=== PATIENT | female | born 1945 | race Caucasian/White ===

== ENCOUNTER 2018-12-17 03:31 | Emergency (ER) | payer MEDICARE, OTHER ==
[2018-12-17] MEDS ORDERED: Metoprolol Tartrate 5 MG/5 ML SDV IVPUSH ONE (03:55)
--- NOTE | 2018-12-17 03:55 | EDM.PDOC ---
ED HPI GENERAL MEDICAL PROBLEM - General Chief Complaint: Cardiovascular Problem Stated Complaint: RACING HEART/LEFT UPPER ABDOMINAL PAIN Time Seen by Provider: 12/17/18 03:53 Source of Information: Reports: Patient, Family (spouse) History Limitations: Reports: No Limitations - History of Present Illness INITIAL COMMENTS - FREE TEXT/NARRATIVE: 73-year-old female who is a very vague historian presents to the ED because of palpitations in her chest. She states she perhaps feels very minimally short of breath. No dizziness or lightheadedness. She states she gets frequent bouts of similar attacks but they usually don't last very long. They've been coming more frequently and lasting longer. This was present even before she went to bed and she slept off and on during the night. She decided to come to the hospital because of rapid irregular heartbeat in the 130s 140s at home. The ECG shows sinus rhythm at a sinus tachycardia at 107. With very frequent premature atrial contractions from multiple foci. He denies any central chest pain. She states she has no known heart disease had a stress test in 2018 at which she time she passed. 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 Again she has no complaints of chest pain. She has no known thyroid disease. No recent changes to any of her medications. Blood pressure on arrival was quite high at 185/118. She does appear to be anxious. Onset: Unknown/Unsure (She states she gets these almost daily but never usually last this long.) Duration: Week(s):, Getting Worse, Intermittent, Waxing/Waning Location: Reports: Chest (Palpitations fast irregular beating of her heart.) Quality: Reports: Other Severity: Moderate (Denies any chest pain.) Improves with: Reports: None Worsens with: Reports: None Context: Reports: Other (Occurs spontaneously for no good reason.). Denies: Activity, Exercise, Lifting, Sick Contact, Trauma Associated Symptoms: Reports: Malaise. 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 (see below) (None.) Epigastric Pain Score (Numeric/FACES): 7 - Related Data Allergies Allergy/AdvReac Type Severity Reaction Status Date / Time ibuprofen [From Motrin] Allergy Swelling Verified 12/17/18 03:55 Home Meds: Home Meds Aspirin 81 mg PO DAILY 12/17/18 [History] Atenolol [Tenormin] 25 mg PO DAILY #30 tablet 12/17/18 [Rx] Calcium Carbonate [Tums] 500 mg PO BEDTIME 12/17/18 [History] Calcium Phosphate Trib/Vit D3 [Citracal + D3 Gummies] 1 tab PO DAILY 12/17/18 [ History] Multivits,Ca,Minerals/Iron/FA [Thera-M] 1 each PO DAILY 12/17/18 [History] Pantoprazole Sodium [Protonix] 40 mg PO ACBREAKFAST 12/17/18 [History] Propylene Glycol/PEG 400/Pf [Systane 0.3-0.4% Eye Drops] 1 each OP BID 12/17/18 [History] Rosuvastatin [Crestor] 10 mg PO DAILY 12/17/18 [History] Past Medical History Cardiovascular History: Reports: Arrhythmia, High Cholesterol Gastrointestinal History: Reports: GERD Endocrine/Metabolic History: Reports: Osteopenia, Osteoporosis, Vitamin D Deficiency Social & Family History - Living Situation & Occupation Living situation: Reports: Occupation: Retired ED ROS GENERAL - Review of Systems Review Of Systems: See Below Constitutional: Reports: Fatigue. Denies: Fever, Chills, Malaise, Weakness, Decreased Appetite, Weight Loss HEENT: Reports: Glasses Respiratory: Denies: Shortness of Breath, Wheezing, Pleuritic Chest Pain, Cough , Sputum Cardiovascular: Reports: Palpitations. Denies: Chest Pain, Blood Pressure Problem, Claudication, Dyspnea on Exertion, Edema, Lightheadedness, Orthopnea Endocrine: Reports: Fatigue GI/Abdominal: Reports: Constipation : Reports: Frequency, Incontinence (Mostly stress-induced.) Musculoskeletal: Reports: Joint Pain Skin: Reports: No Symptoms (A sepsis neck and low back at times.) Neurological: Reports: No Symptoms. Denies: Dizziness Psychiatric: Reports: No Symptoms Hematologic/Lymphatic: Reports: No Symptoms Immunologic: Reports: No Symptoms ED EXAM, GENERAL - Physical Exam Exam: See Below Exam Limited By: No Limitations General Appearance: Alert, WD/WN, Anxious, Moderate Distress, Other (Vital signs show she is afebrile with temperature 36.6. Pulse is reported as 90 but monitor shows it up 230 at times. Respiratory to 17 BP elevated 190/118. Pulse ox 96% on room air) Eye Exam: Bilateral Eye: Normal Inspection Head: Atraumatic, Normocephalic Neck: Normal Inspection, Supple, Non-Tender, Full Range of Motion. No: Carotid Bruit, Lymphadenopathy (L), Lymphadenopathy (R) Respiratory/Chest: No Respiratory Distress, Lungs Clear, Normal Breath Sounds, No Accessory Muscle Use, Other (Surgical scars right upper anterior chest. She reports an open reduction internal fixation of a fractured collarbone many years ago.) Cardiovascular: No Gallop, No Murmur, No Rub, Tachycardia (Rate is up to 130/m at times.), Irregularly Irregular Peripheral Pulses: 2+: Posterior Tibial (L), Posterior Tibial (R), Dorsalis Pedis (L), Dorsalis Pedis (R) GI/Abdominal: Normal Bowel Sounds, Soft, Non-Tender, No Organomegaly, No Abnormal Bruit, No Mass, Pelvis Stable Extremities: Pedal Edema (Patient comments that they usually swell a bit during the day and go down overnight.) Neurological: Alert (1-2+ pitting edema to mid tib-fib bilaterally.), Oriented, CN II-XII Intact, Normal Cognition, Normal Gait Psychiatric: Anxious Skin Exam: Warm, Dry, Intact, Normal Color, No Rash EKG INTERPRETATION EKG Date: 12/17/18 Time: 03:37 Rhythm: Other (Sinus tachycardia with very frequent premature atrial contractions from multiple areas) Rate (Beats/Min): 107 [place]: LAD-Left [place] Deviation P-Wave: Variable (Variable morphology due to PACs.) QRS: Other (There are Q waves in leads II, III, and F aVF but with an old inferior wall myocardial infarction. There is decreased voltage in limb and precordial leads. There are near Q waves in V3 and V4 with poor R-wave progression. Cannot rule out anteroseptal ischemia.) QT: Prolonged (Left axis deviation of -66. Mildly prolonged.) EKG Interpretation Comments: Abnormal ECG Course - Vital Signs Last Recorded V/S: Last Vital Signs Temp 36.6 C 12/17/18 03:53 Pulse 83 12/17/18 04:03 Resp 17 12/17/18 03:53 BP 148/96 H 12/17/18 04:03 Pulse Ox 96 12/17/18 03:53 - Orders/Labs/Meds Orders: Active Orders 24 hr Category Date Time Status Chest 1V Frontal [CR] Stat Exams 12/17/18 03:53 Taken PRO B-TYPE NATRIUR PEPT,BNPPRO [CHEM] Stat Lab 12/17/18 03:50 Received URINALYSIS W/MICROSCOPIC [UA W/MICROSCOPIC] [URIN] Stat Lab 12/17/18 03:54 Ordered Sodium Chloride 0.9% [Normal Saline] 1,000 ml Med 12/17/18 04:00 Active IV ASDIRECTED Medication Orders Sodium Chloride (Normal Saline) 1,000 mls @ 100 mls/hr IV ASDIRECTED ALEXANDRA Last Admin: 12/17/18 04:05 Dose: 100 mls/hr Labs: Laboratory Tests 12/17/18 12/17/18 12/17/18 Range/Units 03:50 03:50 03:50 WBC 7.66 (3.98-10.04) K/mm3 RBC 4.93 (3.98-5.22) M/mm3 Hgb 14.7 (11.2-15.7) gm/dl Hct 44.3 (34.1-44.9) % MCV 89.9 (79.4-94.8) fl MCH 29.8 (25.6-32.2) pg MCHC 33.2 (32.2-35.5) g/dl RDW Std Deviation 46.0 (36.4-46.3) fL Plt Count 250 (182-369) K/mm3 MPV 10.9 (9.4-12.3) fl Neut % (Auto) 59.9 (34.0-71.1) % Lymph % (Auto) 22.1 (19.3-51.7) % [place] % (Auto) 10.8 (4.7-12.5) % Eos % (Auto) 6.5 H (0.7-5.8) Baso % (Auto) 0.7 (0.1-1.2) % Neut # (Auto) 4.59 (1.56-6.13) K/mm3 Lymph # (Auto) 1.69 (1.18-3.74) K/mm3 [place] # (Auto) 0.83 H (0.24-0.36) K/mm3 Eos # (Auto) 0.50 H (0.04-0.36) K/mm3 Baso # (Auto) 0.05 (0.01-0.08) K/mm3 PT 10.8 (9.7-12.0) SECONDS INR 0.99 APTT 25 (22-31) SECONDS Sodium 139 (136-145) mEq/L Potassium 3.9 (3.5-5.1) mEq/L Chloride 104 (98-107) mEq/L Carbon Dioxide 27 (21-32) mEq/L Anion Gap 11.9 (5-15) BUN 19 H (7-18) mg/dL Creatinine 0.7 (0.55-1.02) mg/dL Est Cr Clr Drug Dosing TNP Estimated GFR (MDRD) > 60 (>60) mL/min BUN/Creatinine Ratio 27.1 H (14-18) Glucose 99 (83-115) mg/dL Calcium 9.2 (8.5-10.1) mg/dL Magnesium 2.0 (1.8-2.4) mg/dl Total Bilirubin 0.5 (0.2-1.0) mg/dL AST 17 (15-37) U/L ALT 22 (14-59) U/L Alkaline Phosphatase 75 (46-116) U/L Troponin I < 0.017 (0.00-0.056) ng/mL C-Reactive Protein < 0.2 (<1.0) mg/dL Total Protein 7.8 (6.4-8.2) g/dl Albumin 3.9 (3.4-5.0) g/dl Globulin 3.9 gm/dL Albumin/Globulin Ratio 1.0 (1-2) TSH 3rd Generation 3.966 H (0.358-3.74) uIU/mL Meds: Medications Generic Name Dose Route Start Last Admin Trade Name Freq PRN Reason Stop Dose Admin Sodium Chloride 1,000 mls @ 100 mls/hr 12/17/18 04:00 12/17/18 04:05 Normal Saline IV 100 mls/hr ASDIRECTED ALEXANDRA Administration Discontinued Medications Generic Name Dose Route Start Last Admin Trade Name Freq PRN Reason Stop Dose Admin Metoprolol Tartrate 5 mg 12/17/18 03:55 10/02/19 04:03 Lopressor IVPUSH 12/17/18 03:56 5 mg ONETIME ONE Administration - Radiology Interpretation Free Text/Narrative:: 33-year-old female presents to the ED with palpitations. She states that these occur frequently for her and almost on a daily basis. They're getting more frequent and today and yesterday she's had a lot of palpitations that just won' t go away. Usually settle down within a short period of time. She is relatively asymptomatic in terms that she's not short of breath she denies any central chest pain she is not dizzy or lightheaded. She appears to be quite anxious upon arrival. She is a rather poor historian. Her initial blood pressure was markedly elevated at 180 07/16/17. Weight was up to 1 37/m to frequent premature atrial contractions on top of a sinus tachycardia of 10 7/m. There are Q waves in the inferior wall suggesting an old inferior wall myocardial infarction. I did get a hold of the ECG stress test and lexicon study done in June 2017 and they were reported as normal. Plan she will receive Lopressor 5 mg IV to suppress PACs and improve her blood pressure. Routine labs including a TSH to be done. Portable chest x-ray to be done. - Re-Assessments/Exams Free Text/Narrative Re-Assessment/Exam: 12/17/18 04:22 Portable chest x-ray reveals a screw in her right clavicle. He did indicate that she had previous fracture and open reduction internal fixation. Cardiac silhouette is essentially normal. Probable mild tortuous thoracic aorta. No significant vascular congestion. Heart rate is now 65/m BP is dropped to 142/ 96.02 Sats remained 97% on room air. 12/17/18 04:38 patient remains in sinus rhythm at 66/m. BP is down to 137/81. Sats are 96% on room air. Patient is watching TV and seems very unconcerned. 12/17/18 04:52 Labs reveal a normal white count at 7.66 auto differential shows 60% neutrophils. Hemoglobin is 14.7 with hematocrit of 44.3. Platelet count normal 250,000. PT is 10.8 with an INR of 0.99. PTT is 25. Sodium 139 with potassium of 3.9. Chloride 104 the bicarbonate 27. Anion gap is 11.9. BUN is 19 with a creatinine of 0.7 GFR remains greater than 60. Glucose is 99. Calcium 9.2. Magnesium normal at 2.0. Liver function normal. Troponin I is less than 0.017. C-reactive protein less than 0.2. Total protein 7.8 with no been fraction of 3.9. TSH is 3.966 slightly elevated. Normal is up to 3.749 lab. This suggests that she has subclinical hypothyroidism. Needs a recheck on her thyroid function in 6 months. Since the patient is having a lot of palpitations and going to place her on atenolol 25 mg once daily to help control them plus control her blood pressure. I will have her follow up in the clinic in 2 weeks time Departure - Departure Time of Disposition: 04:53 Disposition: Home, Self-Care 01 Reason for Transfer *Q: Other Condition: Fair Clinical Impression: Rapid palpitations, Finding of multiple premature atrial contractions by electrocardiography, Mild hypertension, Subclinical hypothyroidism, Palpitations Prescriptions: Atenolol [Tenormin] 25 mg PO DAILY #30 tablet Instructions: Premature Atrial Contraction Referrals: Philip Nicholson MD [Primary Care Provider] - Forms: ED Department Discharge Additional Instructions: Evaluation the emergent today in regards to palpitations with an underlying rapid irregular heartbeat. Premature atrial contractions coming from multiple foci were present causing your hard to skip and race. Indicated this is been occurring quite frequently as of late but usually doesn't last as long. Her blood pressure also remained high during her stay in the ED. It appears that you have mild hypertension with the top number ranging between 140 and 165 and the bottom number between 85 and 95. Suggest use of atenolol 25 mg tablet once daily in the morning to help control blood pressure and also control palpitations. Inverted medication were used intravenously in the emergency room to bring your palpitations under control and it worked extremely well. Heart rate went down to the 64 range where prolongs and palpitations were completely eradicated by Lopressor 5 mg IV. Just starting atenolol 25 mg once daily this morning after you pick it up from the pharmacy. Suggest follow-up with her personal care physician and 2-3 weeks' time. The only other abnormality identified on lab work was difficult subclinical hypothyroidism. Lab suggests either thyroid gland is working a bit harder than normal to send off thyroid hormone to your rest of your body. Density is minimally abnormal at this time he does not deserve treatment but should be tested every 6 months to a year to make sure you don't develop full-blown hypothyroidism or underactive thyroid gland. It would then require any supplemental thyroid hormone once daily in a well-formed. - My Orders Last 24 Hours: My Active Orders 12/17/18 03:50 PRO B-TYPE NATRIUR PEPT,BNPPRO [CHEM] Stat 12/17/18 03:53 Chest 1V Frontal [CR] Stat 12/17/18 03:54 URINALYSIS W/MICROSCOPIC [UA W/MICROSCOPIC] [URIN] Stat 12/17/18 04:00 Sodium Chloride 0.9% [Normal Saline] 1,000 ml IV ASDIRECTED - Assessment/Plan Last 24 Hours: My Active Orders 12/17/18 03:50 PRO B-TYPE NATRIUR PEPT,BNPPRO [CHEM] Stat 12/17/18 03:53 Chest 1V Frontal [CR] Stat 12/17/18 03:54 URINALYSIS W/MICROSCOPIC [UA W/MICROSCOPIC] [URIN] Stat 12/17/18 04:00 Sodium Chloride 0.9% [Normal Saline] 1,000 ml IV ASDIRECTED
[2018-12-17] MEDS ORDERED: Sodium Chloride 0.9% 1,000 ML IV SCH (04:00)
--- NOTE | 2018-12-17 06:53 | CR ---
Chest: Frontal view of the chest was obtained. Comparison: Prior chest x-ray is not available. Previous surgery within the right clavicle is noted. Tortuous thoracic aorta is seen. Heart size at the upper limits of normal. Lungs are clear with no acute parenchymal change. Azygous lobe is incidentally noted. Impression: 1. Findings as noted above. Nothing acute is seen on frontal chest x-ray. Diagnostic code #2
== END 2018-12-17 05:07 | disposition home or self-care (01) ==
LOC: JD.ED 03:31
DX: I49.1 Atrial premature depolarization (principal); I10 Essential (primary) hypertension; E03.9 Hypothyroidism, unspecified; E78.00 Pure hypercholesterolemia, unspecified; K21.9 Gastro-esophageal reflux disease without esophagitis; Z79.899 Other long term (current) drug therapy; Z79.82 Long term (current) use of aspirin; Z88.6 Allergy status to analgesic agent
CPT/HCPCS: 36415; 71045; 80053; 83735; 83880; 84443; 84484; 85025; 85610; 85730; 86140; 96361; 96374; 99285; J3490; J7040; 93010

== ENCOUNTER 2020-07-20 09:19 | Emergency (ER) | payer MEDICARE, OTHER ==
[2020-07-20] MEDS ORDERED: Sodium Chloride 0.9% 10 ML Syringe FLUSH PRN ×2 (09:46→09:55)
--- NOTE | 2020-07-20 09:53 | EDM.PDOC ---
ED HPI GENERAL MEDICAL PROBLEM - General Chief Complaint: Abdominal Pain Stated Complaint: ABDOMINAL PAIN Time Seen by Provider: 07/20/20 09:30 Source of Information: Reports: Patient History Limitations: Reports: No Limitations - History of Present Illness INITIAL COMMENTS - FREE TEXT/NARRATIVE: The patient presents with lower abdominal pain. She said this started Saturday night. She had nausea, vomiting, diarrhea, and abdominal pain. The nausea, vomiting and diarrhea are better. She has slightly formed stools now but there are pale. She has no fever, chills, cough, congestion, runny nose, chest pain or shortness of breath. She has no dysuria. Onset: Gradual Duration: Day(s): (5) Location: Reports: Abdomen Quality: Reports: Sharp Severity: Moderate Improves with: Reports: None Worsens with: Reports: None Associated Symptoms: Reports: Nausea/Vomiting. Denies: Chest Pain, Cough, Fever/Chills, Headaches, Shortness of Breath Lower Abdomen Pain Score (Numeric/FACES): 5 - Related Data Allergies Allergy/AdvReac Type Severity Reaction Status Date / Time ibuprofen [From Motrin] Allergy Swelling Verified 12/17/18 03:55 Home Meds: Home Meds Aspirin 81 mg PO DAILY 12/17/18 [History] Calcium Carbonate [Tums] 500 mg PO BEDTIME 12/17/18 [History] Multivit,Calc,Mins/Iron/Folic [Thera-M] 1 each PO DAILY 12/17/18 [History] Pantoprazole Sodium [Protonix] 40 mg PO ACBREAKFAST 12/17/18 [History] Propylene Glycol/PEG 400/Pf [Systane 0.3-0.4% Eye Drops] 1 each OP BID 12/17/18 [History] Rosuvastatin [Crestor] 10 mg PO DAILY 12/17/18 [History] atenoloL [Tenormin] 25 mg PO DAILY #30 tablet 12/17/18 [Rx] Aloe Vera/Sodium Chloride [[place] Saline Nasal Gel] 1 spray [place] ASDIRECTED PRN 07/20/20 [History] Amoxicillin/Clavulanate K [Augmentin 875-125 MG] 1 tab PO BID #20 tablet 07/20/20 [Rx] Cholecalciferol (Vitamin D3) [Vitamin D3] 1,000 unit PO DAILY 07/20/20 [History] Erythromycin Base [Erythromycin] 0 mg EYEBOTH ASDIRECTED 07/20/20 [History] L. Acidophilus/L. Rhamnosus [[place] Women 15 B Cell Cap] 1 tab PO DAILY 07/20/20 [History] Past Medical History Cardiovascular History: Reports: Arrhythmia, High Cholesterol Gastrointestinal History: Reports: Diverticulosis, GERD Genitourinary History: Reports: Urinary Incontinence [employer] History: Reports: Musculoskeletal History: Reports: Other (See Below) Other Musculoskeletal History: clavicle fracture Endocrine/Metabolic History: Reports: Obesity/BMI 30+, Osteopenia, Osteoporosis, Vitamin D Deficiency - Infectious Disease History Infectious Disease History: Reports: C-Difficile, Measles Social & Family History - Tobacco Use Tobacco Use Status *Q: Never Tobacco User Second Hand Smoke Exposure: No - Caffeine Use Caffeine Use: Reports: Soda, Tea - Recreational Drug Use Recreational Drug Use: No - Living Situation & Occupation Living situation: Reports: Occupation: Retired ED ROS GENERAL - Review of Systems Review Of Systems: See Below Constitutional: Reports: No Symptoms HEENT: Reports: No Symptoms Respiratory: Reports: No Symptoms Cardiovascular: Reports: No Symptoms Endocrine: Reports: No Symptoms GI/Abdominal: Reports: Abdominal Pain, Diarrhea, Nausea, Vomiting : Reports: No Symptoms Musculoskeletal: Reports: No Symptoms ED EXAM, GI/ABD - Physical Exam Exam: See Below Exam Limited By: No Limitations General Appearance: Alert, No Apparent Distress Ears: Normal External Exam Nose: Normal Inspection Head: Atraumatic, Normocephalic Neck: Normal Inspection Respiratory/Chest: No Respiratory Distress, Lungs Clear, Normal Breath Sounds Cardiovascular: Regular Rate, Rhythm, No Edema, No Murmur GI/Abdominal Exam: Soft, No Organomegaly, No Mass, Tender (Mild to moderate lower abdominal pain with palpation) Extremities: Normal Inspection Neurological: Alert, Oriented, No Motor/Sensory Deficits Course - Vital Signs Last Recorded V/S: Last Vital Signs Temp 97.6 F 07/20/20 09:29 Pulse 88 07/20/20 09:29 Resp 12 07/20/20 09:29 BP 175/93 H 07/20/20 09:29 Pulse Ox 100 07/20/20 09:29 - Orders/Labs/Meds Orders: Active Orders 24 hr Category Date Time Status Peripheral IV Care [RC] . DIRECTED Care 07/20/20 09:47 Active Sodium Chloride 0.9% [Normal Saline] 1,000 ml Med 07/20/20 10:00 Active IV ASDIRECTED Sodium Chloride 0.9% [Saline Flush] Med 07/20/20 09:46 Active 10 ml FLUSH ASDIRECTED PRN Sodium Chloride 0.9% [Saline Flush] Med 07/20/20 09:55 Active 10 ml FLUSH ONETIME PRN ED Antiemetic Medication Reflex [OM.PC] Stat Ot 07/20/20 09:47 Ordered Peripheral IV Insertion Adult [OM.PC] Stat Ot 07/20/20 09:46 Ordered Medication Orders Sodium Chloride (Normal Saline) 1,000 mls @ 150 mls/hr IV ASDIRECTED ALEXANDRA Last Admin: 07/20/20 10:05 Dose: 150 mls/hr Documented by: KAY Sodium Chloride (Sodium Chloride 0.9% 10 Ml Syringe) 10 ml FLUSH ASDIRECTED PRN PRN Reason: Keep Vein Open Last Admin: 07/20/20 10:06 Dose: 10 ml Documented by: KAY Sodium Chloride (Sodium Chloride 0.9% 10 Ml Syringe) 10 ml FLUSH ONETIME PRN PRN Reason: IV FLUSH Last Admin: 07/20/20 10:59 Dose: 10 ml Documented by: NIEVES Labs: Laboratory Tests 07/20/20 07/20/20 07/20/20 Range/Units 09:46 10:05 11:18 WBC 12.47 H (3.98-10.04) K/mm3 RBC 4.87 (3.98-5.22) M/mm3 Hgb 14.1 (11.2-15.7) gm/dl Hct 44.1 (34.1-44.9) % MCV 90.6 (79.4-94.8) fl MCH 29.0 (25.6-32.2) pg MCHC 32.0 L (32.2-35.5) g/dl RDW Std Deviation 46.9 H (36.4-46.3) fL Plt Count 264 (182-369) K/mm3 MPV 10.2 (9.4-12.3) fl Neut % (Auto) 79.2 H (34.0-71.1) % Lymph % (Auto) 8.2 L (19.3-51.7) % [place] % (Auto) 10.1 (4.7-12.5) % Eos % (Auto) 2.1 (0.7-5.8) Baso % (Auto) 0.2 (0.1-1.2) % Neut # (Auto) 9.88 H (1.56-6.13) K/mm3 Lymph # (Auto) 1.02 L (1.18-3.74) K/mm3 [place] # (Auto) 1.26 H (0.24-0.36) K/mm3 Eos # (Auto) 0.26 (0.04-0.36) K/mm3 Baso # (Auto) 0.02 (0.01-0.08) K/mm3 Sodium 141 (136-145) mEq/L Potassium 4.0 (3.5-5.1) mEq/L Chloride 105 (98-107) mEq/L Carbon Dioxide 24 (21-32) mEq/L Anion Gap 16.0 H (5-15) BUN 28 H (7-18) mg/dL Creatinine 0.8 (0.55-1.02) mg/dL Est Cr Clr Drug Dosing 59.41 mL/min Estimated GFR (MDRD) > 60 (>60) mL/min BUN/Creatinine Ratio 35.0 H (14-18) Glucose 95 (83-115) mg/dL Calcium 8.3 L (8.5-10.1) mg/dL Total Bilirubin 0.9 (0.2-1.0) mg/dL AST 21 (15-37) U/L ALT 32 (14-59) U/L Alkaline Phosphatase 76 (46-116) U/L Total Protein 7.4 (6.4-8.2) g/dl Albumin 3.4 (3.4-5.0) g/dl Globulin 4.0 gm/dL Albumin/Globulin Ratio 0.9 L (1-2) Lipase 133 (73-393) U/L Urine Color Yellow (Yellow) Urine Appearance Clear (Clear) Urine pH 5.5 (5.0-8.0) Ur Specific [place] 1.020 (1.005-1.030) Urine Protein Trace H (Negative) Urine Glucose (UA) Negative (Negative) Urine Ketones 1+ H (Negative) Urine Occult Blood Trace-intact H (Negative) Urine Nitrite Negative (Negative) Urine Bilirubin Negative (Negative) Urine Urobilinogen 0.2 (0.2-1.0) Ur Leukocyte Esterase 1+ H (Negative) Urine RBC 5-10 H (0-5) /hpf Urine WBC 10-20 H (0-5) /hpf Ur Squamous Epith Cells 0-5 (0-5) /hpf Urine Bacteria Many H (FEW) /hpf Urine Mucus Not seen (FEW) /hpf Meds: Medications Generic Name Dose Route Start Last Admin Trade Name Freq PRN Reason Stop Dose Admin Sodium Chloride 1,000 mls @ 150 mls/hr 07/20/20 10:00 07/20/20 10:05 Normal Saline IV 150 mls/hr ASDIRECTED ALEXANDRA Administration Sodium Chloride 10 ml 07/20/20 09:46 07/20/20 10:06 Sodium Chloride 0.9% 10 Ml Syringe FLUSH 10 ml ASDIRECTED PRN Administration Keep Vein Open Sodium Chloride 10 ml 07/20/20 09:55 07/20/20 10:59 Sodium Chloride 0.9% 10 Ml Syringe FLUSH 10 ml ONETIME PRN Administration IV FLUSH Discontinued Medications Generic Name Dose Route Start Last Admin Trade Name Kody PRN Reason Stop Dose Admin Diatrizoate Meglum/Diatrizoate Sod 120 ml 07/20/20 09:55 07/20/20 10:58 Diatrizoate Meglumine/Diatrizoate Sodium 37% 120 Ml Bottle PO 07/20/20 09:56 30 ml ONETIME ONE Administration Iopamidol 50 ml 07/20/20 09:55 07/20/20 10:58 Iopamidol 612 Mg/Ml 50 Ml Sdv IVPUSH 07/20/20 09:56 50 ml ONETIME ONE Administration Iopamidol 100 ml 07/20/20 09:55 07/20/20 10:58 Iopamidol 612 Mg/Ml 100 Ml Bottle IVPUSH 07/20/20 09:56 100 ml ONETIME ONE Administration - Re-Assessments/Exams Free Text/Narrative Re-Assessment/Exam: 07/20/20 09:54 I ordered an IV NS at 150ml/hr, labs, UA and a CT of the abdomen and pelvis with IV and oral contrast. 07/20/20 11:50 Her WBC was elevated at 12.47. Her anion gap is elevated at 16. Her lipase is normal. Her UA shows a UTI. Her CT shows inflammatory change within the pelvis with numerous sigmoid diverticuli. Findings are compatible with diverticulitis. Diffuse bowel wall thickening within the right colon and part way into the transverse colon suspicious for colitis. Uncertain if this is acute or chronic. I will get her on augmentin. I have ordered something for pain before she goes. Departure - Departure Time of Disposition: 12:00 Disposition: Home, Self-Care 01 Condition: Good Clinical Impression: Diverticulitis UTI (urinary tract infection) Qualifiers: Urinary tract infection type: acute cystitis Hematuria presence: without hematuria Qualified Code(s): N30.00 - Acute cystitis without hematuria - Discharge Information Prescriptions: Amoxicillin/Clavulanate K [Augmentin 875-125 MG] 1 tab PO BID #20 tablet Referrals: Philip Nicholson MD [Primary Care Provider] - 1 Week Forms: ED Department Discharge Additional Instructions: Drink plenty of fluids. Take the augmentin 2 times per day for 10 days. Take tylenol or motrin as needed for pain. Follow up with Dr Nicholson within a week. Please return if you are worse. Sepsis Event Note (ED) - Evaluation Sepsis Screening Result: No Definite Risk - Focused Exam Vital Signs: Vital Signs Temp Pulse Resp BP Pulse Ox 07/20/20 09:29 97.6 F 88 12 175/93 H 100 - My Orders Last 24 Hours: My Active Orders 07/20/20 09:46 Sodium Chloride 0.9% [Saline Flush] 10 ml FLUSH ASDIRECTED PRN Peripheral IV Insertion Adult [OM.PC] Stat 07/20/20 09:47 Peripheral IV Care [RC] . DIRECTED ED Antiemetic Medication Reflex [OM.PC] Stat 07/20/20 09:55 Sodium Chloride 0.9% [Saline Flush] 10 ml FLUSH ONETIME PRN 07/20/20 10:00 Sodium Chloride 0.9% [Normal Saline] 1,000 ml IV ASDIRECTED - Assessment/Plan Last 24 Hours: My Active Orders 07/20/20 09:46 Sodium Chloride 0.9% [Saline Flush] 10 ml FLUSH ASDIRECTED PRN Peripheral IV Insertion Adult [OM.PC] Stat 07/20/20 09:47 Peripheral IV Care [RC] . DIRECTED ED Antiemetic Medication Reflex [OM.PC] Stat 07/20/20 09:55 Sodium Chloride 0.9% [Saline Flush] 10 ml FLUSH ONETIME PRN 07/20/20 10:00 Sodium Chloride 0.9% [Normal Saline] 1,000 ml IV ASDIRECTED
[2020-07-20] MEDS ORDERED: Iopamidol 612 MG/ML 100 ML Bottle IVPUSH ONE (09:55)
[2020-07-20] MEDS ORDERED: Iopamidol 612 MG/ML 50 ML SDV IVPUSH ONE (09:55)
[2020-07-20] MEDS ORDERED: Diatrizoate Meglumine/Diatrizoate Sodium 37% 120 ML Bottle PO ONE (09:55)
[2020-07-20] MEDS ORDERED: Sodium Chloride 0.9% 1,000 ML IV SCH (10:00)
--- NOTE | 2020-07-20 11:39 | CT ---
CT abdomen and pelvis Technique: Multiple axial sections were obtained from above the dome of the diaphragm inferiorly through the pubic symphysis. Intravenous and oral contrast was utilized. Delayed images were also obtained from above the kidneys inferiorly through the bladder. Reconstructed coronal and sagittal images were obtained. Comparison: No prior CT abdomen or pelvis exam is available. Findings: Bowel wall thickening is noted within the right colon and portions of the transverse colon. I believe the location of the colon is due to a normal variant. Visualized lung bases show mild areas of atelectasis with nothing acute. Liver contains no focal parenchymal abnormality. Small hiatal hernia is noted. Spleen is within normal limits. Small fatty lesion is noted within the upper left kidney compatible with benign etiology. Other low density lesions are seen within the left kidney as well as within the right kidney compatible with mostly small cysts. Largest cyst within the right kidney measures 7.9 cm. No ureteral dilatation is seen. Abdominal aorta shows diffuse atherosclerotic change with no aneurysm. No retroperitoneal adenopathy or mesenteric abnormalities are seen. Diverticuli are seen within the sigmoid colon with inflammatory changes being seen within the pelvis compatible with diverticulitis. Delayed images show contrast within the ureters and bladder. Bone window settings were reviewed which show scattered degenerative change within the spine. No acute osseous abnormality is appreciated. Impression: 1. Inflammatory change within the pelvis with numerous sigmoid diverticuli. Findings are compatible with diverticulitis. 2. Diffuse bowel wall thickening within the right colon and part way into the transverse colon suspicious for colitis. Uncertain if this is acute or chronic. 3. Other findings as noted above which are believed to be incidental. Diagnostic code #3
[2020-07-20] MEDS ORDERED: HYDROmorphone 0.5 MG/0.5 ML Syringe IVPUSH ONE (11:57)
== END 2020-07-20 12:15 | disposition home or self-care (01) ==
LOC: JD.ED 09:19
DX: N30.00 Acute cystitis without hematuria (principal); K57.92 Diverticulitis of intestine, part unspecified, without perforation or abscess without bleeding; E78.00 Pure hypercholesterolemia, unspecified; E66.9 Obesity, unspecified; Z88.6 Allergy status to analgesic agent; Z68.33 Body mass index [BMI] 33.0-33.9, adult; Z79.899 Other long term (current) drug therapy; Z79.82 Long term (current) use of aspirin
CPT/HCPCS: 36415; 74177; 80053; 81001; 83690; 85025; 96374; 99284; J1170; J7030; Q9963; Q9967

== ENCOUNTER 2022-07-18 15:30 | Emergency (ER) | payer MEDICARE, OTHER ==
[2022-07-18] MEDS ORDERED: Morphine 4 MG/ML Syringe IVPUSH ONE (16:45)
== END 2022-07-18 17:21 | disposition home or self-care (01) ==
LOC: JD.ED 15:30
DX: S02.2XXA Fracture of nasal bones, initial encounter for closed fracture (principal); E78.00 Pure hypercholesterolemia, unspecified; E66.9 Obesity, unspecified; Z68.33 Body mass index [BMI] 33.0-33.9, adult; Z88.6 Allergy status to analgesic agent; Z79.82 Long term (current) use of aspirin; Z79.899 Other long term (current) drug therapy; W01.0XXA Fall on same level from slipping, tripping and stumbling without subsequent striking against object, initial encounter
CPT/HCPCS: 36415; 70450; 70486; 72125; 80053; 85025; 96374; 99284; J2270

== ENCOUNTER 2023-10-28 22:46 | Emergency (ER) | payer BC, MEDICARE ==
[2023-10-28] MEDS: Acetaminophen 325 MG Tab PO ONE (23:57)
== END 2023-10-29 01:22 | disposition home or self-care (01) ==
LOC: JD.ED 22:46
DX: R07.81 Pleurodynia (principal); M25.561 Pain in right knee; E78.00 Pure hypercholesterolemia, unspecified; K21.9 Gastro-esophageal reflux disease without esophagitis; E66.9 Obesity, unspecified; Z79.82 Long term (current) use of aspirin; Z79.899 Other long term (current) drug therapy; Z79.2 Long term (current) use of antibiotics; Z88.6 Allergy status to analgesic agent; Z68.32 Body mass index [BMI] 32.0-32.9, adult; W19.XXXA Unspecified fall, initial encounter
CPT/HCPCS: 70450; 71101; 72125; 73562; 99284; A9270; 99283